=== PATIENT | male | born 1960 | race Asian ===

== ENCOUNTER 2023-09-29 07:53 | Day surgery (SDC) | payer BC, MEDICAID ==
[~2023-09-29] VITALS: Ht 175.3 cm; Wt 78.5 kg
[2023-09-29] MEDS ORDERED: fentaNYL CITRATE/PF 100 MCG/2 ML AMP ONE (09:22)
[2023-09-29] MEDS ORDERED: MIDAZOLAM HCL 5 MG/5 ML VIAL ONE (09:22)
[2023-09-29] MEDS ORDERED: BENZOCAINE 20% 0.5mL UD SPRAY MM ONE (09:30)
[2023-09-29] MEDS ORDERED: ONDANSETRON HCL 4 MG/2 ML VIAL ONE (09:38)
[2023-09-29 12:16] VITALS: O2SAT 100
[2023-10-01 15:40] VITALS: BP_SYST 130; PULSE 65; RESP 20
== END 2023-09-29 11:03 | disposition home or self-care (01) ==
LOC: SDS 07:53
PROVIDERS: ATTEND Student in an Organized Health Care Education/Training Program
DX: R12 Heartburn (principal); K29.50 Unspecified chronic gastritis without bleeding; K21.9 Gastro-esophageal reflux disease without esophagitis; Z96.698 Presence of other orthopedic joint implants
CPT/HCPCS: 43239; 99152; 82962; 88305; 88312; 88313; G0378; J2250; J2405; J3010